=== PATIENT | female | born 1955 | race Hispanic/Latino ===

== ENCOUNTER → 2018-07-22 | Day surgery (SDC) | payer OTHER ==
[~2018-07-22] MED LIST: AMLODIPINE BESYL5 MG PO; ASPIR 8181 MG PO; FARXIGA PO; GLIMEPIRIDE2 MG PO; HYOSCYAMINE SULFATE 0.5 MG/ML AMP ONE; LEVOTHYROXINE50 MCG PO; LOSARTAN-HCTZ1 EAC2 PO; LOVASTATIN40 MG PO; METFORMIN HCL500 MG PO; MIDAZOLAM HCL 2 MG/2 ML VIAL ONE; PROPOFOL IV EMULSION 10 MG/ML 50 ML VIAL ONE
[2018-07-22 13:40] VITALS: BP 120/60
== END | disposition home or self-care (01) ==
LOC: OR 09:30
PROVIDERS: ATTEND Internal Medicine Gastroenterology
DX: Z12.11 Encounter for screening for malignant neoplasm of colon (principal); K63.89 Other specified diseases of intestine; K57.30 Diverticulosis of large intestine without perforation or abscess without bleeding; K64.8 Other hemorrhoids; I10 Essential (primary) hypertension; E03.9 Hypothyroidism, unspecified; E11.9 Type 2 diabetes mellitus without complications; E78.00 Pure hypercholesterolemia, unspecified; R01.1 Cardiac murmur, unspecified; Z79.82 Long term (current) use of aspirin; Z79.84 Long term (current) use of oral hypoglycemic drugs; Z68.30 Body mass index [BMI] 30.0-30.9, adult
CPT/HCPCS: 45378; J1980; J2250